=== PATIENT | female | born 1935 | race Caucasian/White ===

== ENCOUNTER → 2016-06-10 | Outpatient (CLI) | payer OTHER ==
--- NOTE | 2016-06-10 16:35 | DI ---
RIGHT SHOULDER, 06/10/2016 2:17 PM: Clinical History: Right shoulder arthritis. Previous Exam: None at this facility. 3 views are submitted. There is no acute soft tissue, osseous, or joint abnormality. There is narrowi ng of the glenohumeral joint consistent with the clinical diagnosis of arthritis. The visualized port ions of the right lung show no infiltrate or nodules. Reading: Degenerative arthritis of the right shoulder.
--- NOTE | 2016-06-10 16:37 | DI ---
LEFT SHOULDER, 06/10/2016 2:57 PM: Clinical History: Left shoulder pain. Previous Exam: None at this facility. 3 views are submitted. There is no acute soft tissue, osseous, or joint abnormality. 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 The visualized portion s of the left lung are unremarkable. Reading: Severe degenerative arthritic changes of the glenohumeral joint. There is bony proliferation along th e inferomedial margin of the humeral head.
== END ==
LOC: RAD 14:12
PROVIDERS: ATTEND Physician Assistant Medical
DX: M25.512 Pain in left shoulder (principal); M25.511 Pain in right shoulder; M19.012 Primary osteoarthritis, left shoulder; M19.011 Primary osteoarthritis, right shoulder
CPT/HCPCS: 73030